=== PATIENT | female | born 1990 | race Caucasian/White ===

== ENCOUNTER 2023-07-03 06:36 | Inpatient (IN) | payer OTHER ==
[2023-07-03] MEDS: ELECTROLYTE-148 SOLN 500 ML IV ONE (07:30)
[2023-07-03 07:59] VITALS: BMI 33.5
[2023-07-03] MEDS: ELECTROLYTE-148 SOLN 1,000 ML IV SCH (08:00)
[2023-07-03] MEDS ORDERED: METOCLOPRAMIDE HCL INJECTION 10 MG/2 ML VIAL ONE ×2 (08:04→09:21)
[2023-07-03] MEDS ORDERED: ONDANSETRON 4 MG/2 ML VIAL ONE ×2 (08:04→09:21)
[2023-07-03] MEDS ORDERED: DEXAMETHASONE SOD PHOSPHATE 4 MG/1 ML VIAL ONE (08:04)
[2023-07-03] MEDS ORDERED: ceFAZolin SODIUM 1 GM VIAL ONE ×2 (08:04→09:21)
[2023-07-03] MEDS ORDERED: SODIUM CHLORIDE 0.9% P/F 10 ML VIAL IJ ONE (08:04)
[2023-07-03] MEDS ORDERED: ePHEDrine SULFATE 50 MG/1 ML AMPULE ONE (08:07)
[2023-07-03] MEDS ORDERED: PHENYLEPHRINE HCL 10 MG/1 ML SINGLE DOSE VIAL ONE (08:07)
[2023-07-03] MEDS ORDERED: FENTANYL CITRATE/PF 50 MCG/ML VIAL ONE (08:14)
[2023-07-03] MEDS ORDERED: morphine SULFATE/PF 1 MG/2 ML (2cc Syringe - QUVA) ONE (08:15)
[2023-07-03] MEDS: CITRIC ACID/SODIUM CITRATE 30 ML UNIT-DOSE CUP PO ONE (08:30)
[2023-07-03 08:33] LABS: INR 0.99 (0.83-1.09); PROTHROMBIN TIME (PATIENT) 11.5 SEC (9.7-13.0)
[2023-07-03 08:36] LABS: ACTIVATED PTT 28.5 SECONDS (25.2-36.5)
[2023-07-03 08:37] LABS: POTASSIUM 3.9 mmol/L (3.5-5.1)
[2023-07-03 08:38] LABS: BASO % 0.3 % (0-2.0); BLOOD UREA NITROGEN 10.1 mg/dL (7-18); CALCIUM 8.9 mg/dL (8.5-10.1); EOS % 0.8 % (0-4.5); HEMATOCRIT 34.2 % (32.4-45.2); HEMOGLOBIN 11.6 GM/dL (10.7-15.3); LYMPH % 19.5 % (8-40); MCH 30.3 pg (25.7-33.7); MEAN CELL VOLUME 89.1 fl (80-96); MONO % 8.5 % (3.8-10.2); NEUT % 70.9 % (42.8-82.8); PLATELET COUNT 193 10^3/uL (134-434); RBC 3.84 M/mm3 (3.60-5.2); RDW 13.8 % (11.6-15.6); WHITE BLOOD COUNT 10.6 K/mm3 (4.0-10.0)
[2023-07-03 08:43] LABS: CREATININE 0.4 mg/dL (0.55-1.3)
[2023-07-03 10:40] LABS: CORD BASE EXCESS -4.3 mmol/L (0-2); CORD HCO3 22.9 mmHg (20-29); CORD PCO2 50.5 mmHg (30-78); CORD pH 7.275 (7.14-7.44)
[2023-07-03 10:43] LABS: CORD HCO3 24.9 mmHg (20-29); CORD PCO2 61.6 mmHg (30-78); CORD pH 7.224 (7.14-7.44)
[2023-07-03] MEDS ORDERED: METHYLERGONOVINE MALEATE 0.2 MG/1 ML AMP IM PRN (10:58)
[2023-07-03] MEDS ORDERED: BENZOCAINE 28 GM HEMORRHOIDAL OINTMENT TP PRN (10:58)
[2023-07-03] MEDS ORDERED: WITCH HAZEL 50% (TUCKS) 40 PAD/JAR PAD TP PRN (10:58)
[2023-07-03] MEDS ORDERED: OXYTOCIN 20 UNITS in 0.9% NS 20 UNIT/1,000 ML INFUS.BAG IV ONE (11:09)
[2023-07-03] MEDS: OXYTOCIN 20 UNITS in 0.9% NS 20 UNIT/1,000 ML INFUS.BAG IV SCH (11:30)
[2023-07-03 17:47] LABS: METHADONE, UR NEGATIVE (NEGATIVE); PHENCYCLIDINE,URINE NEGATIVE (NEGATIVE); URINE BARBITURATES NEGATIVE (NEGATIVE); URINE BENZODIAZEPINES NEGATIVE (NEGATIVE)
[2023-07-03 17:49] LABS: OPIATES, URI NEGATIVE (NEGATIVE)
[2023-07-03 17:58] LABS: COCAINE, UR NEGATIVE (NEGATIVE); URINE AMPHETAMINES NEGATIVE (NEGATIVE)
[2023-07-04] MEDS: IBUPROFEN 800 MG/8 ML IJ IVPB PRN (00:44)
[2023-07-04] MEDS: SIMETHICONE 80 MG TAB.CHEW (FP) PO PRN (07:25)
[2023-07-04] MEDS: ACETAMINOPHEN 325 MG TABLET (FP) PO PRN (07:25)
[2023-07-04 07:26] LABS: BASO % 0.3 % (0-2.0); EOS % 0.7 % (0-4.5); HEMATOCRIT 27.3 % (32.4-45.2); LYMPH % 15.9 % (8-40); MCH 29.9 pg (25.7-33.7); MEAN CELL VOLUME 90.5 fl (80-96); MEAN PLT VOLUME 10.4 fl (7.5-11.1); MONO % 8.6 % (3.8-10.2); NEUT % 74.5 % (42.8-82.8); PLATELET COUNT 156 10^3/uL (134-434); RBC 3.02 M/mm3 (3.60-5.2); RDW 13.5 % (11.6-15.6); WHITE BLOOD COUNT 14.2 K/mm3 (4.0-10.0)
[2023-07-04] MEDS: PRENATAL VITAMINS W/ FOLIC ACID TABLET (FP) PO SCH (09:47)
[2023-07-04] MEDS: ENOXAPARIN NA (PORCINE) 40 MG/0.4 ML DISP.SYRIN SQ SCH (09:47)
[2023-07-04] MEDS: IBUPROFEN 600 MG TABLET (FP) PO PRN (09:48)
[2023-07-04] MEDS ORDERED: BISACODYL 10 MG SUPP.RECT RC PRN (10:58)
[2023-07-04] MEDS: oxyCODONE HCL 5 MG TABLET PO PRN ×2 (12:32→20:11)
[2023-07-05] MEDS ORDERED: oxyCODONE HCL 5 MG TABLET PO PRN (10:00)
[2023-07-05] MEDS: IBUPROFEN 600 MG TABLET (FP) PO SCH (12:25)
[2023-07-05] MEDS: ACETAMINOPHEN 325 MG TABLET (FP) PO PRN (14:56)
[2023-07-05 21:30] VITALS: TEMP 98.6
[2023-07-05] MEDS: oxyCODONE HCL 5 MG TABLET PO PRN (23:19)
[2023-07-06 06:28] LABS: BASO % 0.7 % (0-2.0); EOS % 3.6 % (0-4.5); HEMATOCRIT 26.5 % (32.4-45.2); HEMOGLOBIN 9.2 GM/dL (10.7-15.3); LYMPH % 25.7 % (8-40); MCH 31.2 pg (25.7-33.7); MCHC 34.7 g/dl (32.0-36.0); MEAN CELL VOLUME 89.9 fl (80-96); MEAN PLT VOLUME 9.4 fl (7.5-11.1); MONO % 7.5 % (3.8-10.2); NEUT % 62.5 % (42.8-82.8); PLATELET COUNT 182 10^3/uL (134-434); RBC 2.94 M/mm3 (3.60-5.2); WHITE BLOOD COUNT 8.1 K/mm3 (4.0-10.0)
[2023-07-06 12:04] VITALS: BP 120/76; PULSE 74; RESP 17
== END 2023-07-06 16:40 | disposition home or self-care (01) | DRG 540 ==
LOC: JLDR 06:36 → J3W 13:25
PROVIDERS: ADMIT Obstetrics & Gynecology; ATTEND Obstetrics & Gynecology
PROC: 10D00Z1 Extraction of Products of Conception, Low, Open Approach (ICD-10-PCS; principal; 2023-07-03)
DX: O34.211 Maternal care for low transverse scar from previous cesarean delivery (principal); N85.8 Other specified noninflammatory disorders of uterus; Z3A.39 39 weeks gestation of pregnancy; Z37.0 Single live birth
CPT/HCPCS: 36415; 36600; 80048; 80307; 82803; 85025; 85610; 85730; 86780; 86850; 86900; 86901; 88307-TC; 94010